=== PATIENT | male | born 1945 | race Caucasian/White ===

== ENCOUNTER 2021-12-14 14:47 | Observation (INO) ==
[2021-12-14] MEDS ORDERED: Naloxone 0.4 MG/ML INJ IVP PRN (20:12)
[2021-12-14] MEDS ORDERED: Ondansetron 4 MG/2 ML VIAL IVP PRN (20:12)
[2021-12-14] MEDS ORDERED: 0.9 % Sodium Chloride 1,000 ML IVC SCH ×2 (20:15→22:54)
[2021-12-15 01:12] LABS: Hematocrit 41.6 % (37.5-50.1); Hemoglobin 13.4 g/dL (12.9-16.9); Mean Corpuscular HGB Conc 32.2 g/dL (31.6-35.5); Mean Corpuscular Hemoglobin 28.9 pg (28.0-33.3); Mean Corpuscular Volume 89.8 fL (83.0-100.0); Mean Platelet Volume 10.2 fL (9.4-12.4); Platelet Count 274 K/mcL (140-400); Red Blood Count 4.63 M/mcL (4.19-5.50); Red Cell Distribution Width 14.2 % (11.5-14.5)
[2021-12-15 01:20] LABS: INR 1.1; Prothrombin Time 11.8 Seconds (9.4-12.1)
[2021-12-15 01:23] LABS: BUN/Creatinine Ratio 18 (6-26); Blood Urea Nitrogen 22 mg/dL (8-23); Calcium 9.3 mg/dL (8.6-10.3); Carbon Dioxide 27 mEq/L (23-29); Chloride 105 mEq/L (98-107); Glucose 119 mg/dL (70-105); Osmolality,Calculated 294 (280-300); Potassium 3.7 mEq/L (3.5-5.1); Sodium 140 mEq/L (136-145); eGFR For African Americans > 60 (> 60); eGFR For Non-African Americans 57 (> 60)
[2021-12-15] MEDS ORDERED: Clindamycin 900 MG/50 ML 900 MG/50 ML IV.SOLN IVPB ONE ×2 (07:44→08:10)
[2021-12-15] MEDS ORDERED: Ondansetron 4 MG/2 ML VIAL ONE (07:55)
[2021-12-15] MEDS ORDERED: *HR* FentaNYL (PF) 100 MCG/2 ML VIAL ONE (07:55)
[2021-12-15] MEDS ORDERED: Ketorolac 30 MG/ML VIAL ONE ×2 (07:55→08:50)
[2021-12-15] MEDS ORDERED: *HR* Propofol 200 MG/20 ML VIAL IVP ONE (07:55)
[2021-12-15] MEDS ORDERED: Lidocaine -MPF 2% 2 ML VIAL ONE (07:55)
[2021-12-15] MEDS ORDERED: Ondansetron 4 MG/2 ML VIAL IVP PRN (08:10)
[2021-12-15] MEDS ORDERED: Isovue-300 50ML VIAL ONE (08:10)
[2021-12-15] MEDS ORDERED: *HR* FentaNYL (PF) 100 MCG/2 ML VIAL IVP PRN (08:10)
[2021-12-15] MEDS ORDERED: *HR* HYDROmorphone PF 0.5 MG/0.5 ML SYRINGE IVP PRN (08:10)
[2021-12-15 10:37] VITALS: O2SAT 95
[2021-12-15 11:36] VITALS: BP 137/80; PULSE 78; TEMP 97.2
[2021-12-21 01:28] LABS: Calculi Mass 26 mg
== END 2021-12-15 13:23 | disposition home or self-care (01) ==
LOC: 3ANU
PROVIDERS: ADMIT Internal Medicine; ATTEND Internal Medicine

== ENCOUNTER 2021-12-19 12:54 | Observation (INO) ==
[2021-12-19] MEDS ORDERED: *HR* HYDROmorphone (PF) 1 MG/ML SYRINGE IVP ONE ×2 (13:13→14:08)
[2021-12-19] MEDS ORDERED: Ondansetron 4 MG/2 ML VIAL IVP ONE (13:13)
[2021-12-19] MEDS: 0.9 % Sodium Chloride 1,000 ML IVC ONE (13:27)
[2021-12-19 13:51] LABS: Basophils % 0.4 %; Eosinophils # 0.1 K/mcL (0.0-0.6); Eosinophils % 0.8 %; Hematocrit 43.7 % (37.5-50.1); Hemoglobin 14.2 g/dL (12.9-16.9); Immature Granulocytes % 0.7 % (0-4); Lymphocytes # 1.7 K/mcL (0.6-4.6); Lymphocytes % 18.9 %; Mean Corpuscular HGB Conc 32.5 g/dL (31.6-35.5); Mean Corpuscular Hemoglobin 28.7 pg (28.0-33.3); Mean Corpuscular Volume 88.5 fL (83.0-100.0); Mean Platelet Volume 10.1 fL (9.4-12.4); Monocytes # 0.7 K/mcL (0.0-1.3); Monocytes % 7.7 %; Neutrophils # 6.5 K/mcL (1.6-8.9); Platelet Count 309 K/mcL (140-400); Red Blood Count 4.94 M/mcL (4.19-5.50); Red Cell Distribution Width 14.1 % (11.5-14.5); Segmented Neutrophils % 71.5 %; White Blood Count 9.1 K/mcL (4.3-11.1)
[2021-12-19 14:02] LABS: Bacteria,Urine Few per hpf (None-Few); Bilirubin,Urine Negative (Negative); Blood,Urine Large (Negative); Clarity,Urine Turbid (Clear); Color,Urine Yellow (Yellow); Glucose,Urine (UA) Normal (Normal); Ketones,Urine 10 mg/dL (Negative); Leukocyte Esterase,Urine Negative (Negative); Mucus,Urine Few per lpf (None-Few); Nitrite,Urine Negative (Negative); PH,Urine 6.5 pH Units (5.0-8.0); Protein,Urine >=300 mg/dL (Neg-Trace); RBC,Urine TNTC per hpf (0-3); Specific Gravity,Urine 1.028 (1.010-1.025); Sperm,Urine Present per hpf (None Seen); Squamous Epithelial Cell,Urine Few per hpf (None-Few); Urobilinogen,Urine Normal (Normal); WBC,Urine 15-30 per hpf (0-3)
[2021-12-19 14:05] LABS: Alanine Aminotransferase 19 Units/L (7-52); Albumin 4.4 g/dL (3.5-5.7); Albumin/Globulin Ratio 1.7 (1.1-2.2); Alkaline Phosphatase 59 Units/L (34-104); Aspartate Amino Transferase 18 Units/L (13-39); BUN/Creatinine Ratio 15 (6-26); Bilirubin,Direct 0.2 mg/dL (0.0-0.2); Bilirubin,Indirect 0.6 mg/dL (0.0-1.0); Bilirubin,Total 0.8 mg/dL (0.3-1.0); Blood Urea Nitrogen 25 mg/dL (8-23); Carbon Dioxide 25 mEq/L (23-29); Chloride 106 mEq/L (98-107); Globulin 2.6 g/dL (2.4-3.5); Glucose 91 mg/dL (70-105); Lipase 16 Units/L (11-82); Osmolality,Calculated 296 (280-300); Potassium 3.8 mEq/L (3.5-5.1); Sodium 141 mEq/L (136-145); Troponin I < 0.03 ng/mL (< 0.04); eGFR For African Americans 50 (> 60); eGFR For Non-African Americans 41 (> 60)
[2021-12-19] MEDS ORDERED: MOM Conc 10 ML UD.LIQ PO PRN (15:44)
[2021-12-19] MEDS ORDERED: Melatonin 3 MG TABLET PO PRN (15:44)
[2021-12-19] MEDS ORDERED: Ondansetron ODT 4 MG TAB.RAPDIS SL PRN (15:44)
[2021-12-19] MEDS ORDERED: Naloxone 0.4 MG/ML INJ IVP PRN (15:44)
[2021-12-19] MEDS ORDERED: Mag Hydrox/Al Hydrox/Simeth 30 ML UDC PO PRN (15:44)
[2021-12-19] MEDS: cefTRIAXone 1,000 MG in 0.9 % Sodium Chloride 10 ML IVPB SCH (16:32)
[2021-12-19] MEDS: 0.9 % Sodium Chloride 1,000 ML IVC SCH (16:32)
[2021-12-19] MEDS: Azithromycin 500 MG in 0.9 % Sodium Chloride 250 ML IVPB SCH (16:32)
[2021-12-19] MEDS: *HR* OxyCODONE Immed Rel 5 MG TABLET PO PRN ×2 (16:35→20:27)
[2021-12-19] MEDS: *HR* HYDROmorphone (PF) 1 MG/ML SYRINGE IVP PRN ×2 (18:12→22:43)
[2021-12-19] MEDS: Gabapentin 400 MG CAPSULE PO SCH (20:27)
[2021-12-20 03:21] LABS: BUN/Creatinine Ratio 17 (6-26); Blood Urea Nitrogen 19 mg/dL (8-23); Calcium 8.7 mg/dL (8.6-10.3); Carbon Dioxide 24 mEq/L (23-29); Chloride 108 mEq/L (98-107); Glucose 90 mg/dL (70-105); Osmolality,Calculated 290 (280-300); Potassium 3.8 mEq/L (3.5-5.1); Sodium 139 mEq/L (136-145); eGFR For African Americans > 60 (> 60); eGFR For Non-African Americans > 60 (> 60)
[2021-12-20] MEDS: *HR* OxyCODONE Immed Rel 5 MG TABLET PO PRN ×3 (03:31→19:57)
[2021-12-20] MEDS: *HR* HYDROmorphone (PF) 1 MG/ML SYRINGE IVP PRN ×5 (05:31→23:14)
[2021-12-20] MEDS: 0.9 % Sodium Chloride 1,000 ML IVC SCH (05:32)
[2021-12-20] MEDS: *HR* Enoxaparin 40 MG/0.4 ML SYRINGE SQ SCH (05:33)
[2021-12-20] MEDS: Aspirin Enteric Coated 81 MG Tablet PO SCH (08:22)
[2021-12-20] MEDS: cefTRIAXone 1,000 MG in 0.9 % Sodium Chloride 10 ML IVPB SCH (08:22)
[2021-12-20] MEDS: amLODIPine 5 MG TABLET PO SCH (08:22)
[2021-12-20] MEDS ORDERED: Hyoscyamine SL 0.125 MG TAB.SUBL SL PRN (09:13)
[2021-12-20] MEDS: Hydrocortisone Acetate 25 MG RECTAL SUPPOSITORY RC PRN (14:18)
[2021-12-20] MEDS: Simethicone 80 MG TAB.CHEW PO PRN (14:22)
[2021-12-20] MEDS: Azithromycin 500 MG in 0.9 % Sodium Chloride 250 ML IVPB SCH (15:35)
[2021-12-20] MEDS: Hyoscyamine SL 0.125 MG TAB.SUBL SL SCH ×2 (17:33→23:14)
[2021-12-20] MEDS: Gabapentin 400 MG CAPSULE PO SCH (19:57)
[2021-12-21] MEDS: *HR* HYDROmorphone (PF) 1 MG/ML SYRINGE IVP PRN ×4 (03:24→16:33)
[2021-12-21] MEDS: Hydrocortisone Acetate 25 MG RECTAL SUPPOSITORY RC PRN ×2 (04:19→18:05)
[2021-12-21] MEDS: Hyoscyamine SL 0.125 MG TAB.SUBL SL SCH ×3 (05:48→18:05)
[2021-12-21] MEDS: *HR* OxyCODONE Immed Rel 5 MG TABLET PO PRN ×4 (05:48→21:55)
[2021-12-21] MEDS: *HR* Enoxaparin 40 MG/0.4 ML SYRINGE SQ SCH (05:49)
[2021-12-21] MEDS: Simethicone 80 MG TAB.CHEW PO PRN (07:35)
[2021-12-21] MEDS: Aspirin Enteric Coated 81 MG Tablet PO SCH (07:35)
[2021-12-21] MEDS: cefTRIAXone 1,000 MG in 0.9 % Sodium Chloride 10 ML IVPB SCH (07:36)
[2021-12-21] MEDS: amLODIPine 5 MG TABLET PO SCH (07:36)
[2021-12-21 08:10] LABS: Basophils # 0.1 K/mcL (0.0-0.2); Basophils % 0.7 %; Eosinophils # 0.1 K/mcL (0.0-0.6); Eosinophils % 1.4 %; Hematocrit 43.7 % (37.5-50.1); Hemoglobin 14.3 g/dL (12.9-16.9); Immature Granulocytes % 0.4 % (0-4); Lymphocytes # 1.7 K/mcL (0.6-4.6); Lymphocytes % 16.3 %; Mean Corpuscular HGB Conc 32.7 g/dL (31.6-35.5); Mean Corpuscular Hemoglobin 28.7 pg (28.0-33.3); Mean Corpuscular Volume 87.6 fL (83.0-100.0); Monocytes # 1.1 K/mcL (0.0-1.3); Monocytes % 10.5 %; Neutrophils # 7.2 K/mcL (1.6-8.9); Platelet Count 288 K/mcL (140-400); Red Blood Count 4.99 M/mcL (4.19-5.50); Red Cell Distribution Width 13.8 % (11.5-14.5); Segmented Neutrophils % 70.7 %; White Blood Count 10.2 K/mcL (4.3-11.1)
[2021-12-21 08:34] LABS: Calcium 9.5 mg/dL (8.6-10.3); Potassium 3.4 mEq/L (3.5-5.1)
[2021-12-21] MEDS: polyethylene glycoL 3350 17 GM POWD.PACK PO SCH (11:27)
[2021-12-21] MEDS: Trolamine Salicylate/Aloe Vera 85 APPL/85 GM TUBE TP PRN ×2 (14:10→17:41)
[2021-12-21] MEDS: Azithromycin 500 MG in 0.9 % Sodium Chloride 250 ML IVPB SCH (16:32)
[2021-12-21] MEDS: Gabapentin 400 MG CAPSULE PO SCH (21:56)
[2021-12-21] MEDS ORDERED: 0.9 % Sodium Chloride 1,000 ML ONE (22:59)
[2021-12-21] MEDS ORDERED: 0.9 % Sodium Chloride 1,000 ML IVC ONE (23:01)
[2021-12-21] MEDS: 0.9 % Sodium Chloride 1,000 ML IVC ONE (23:09)
[2021-12-21 23:33] LABS: Albumin 3.8 g/dL (3.5-5.7); Albumin/Globulin Ratio 1.4 (1.1-2.2); Bilirubin,Total 0.4 mg/dL (0.3-1.0); Calcium 9.5 mg/dL (8.6-10.3); Globulin 2.8 g/dL (2.4-3.5); Potassium 3.5 mEq/L (3.5-5.1); Total Protein 6.6 g/dL (6.4-8.9)
[2021-12-21 23:51] LABS: Prolactin 19.76 ng/mL (3.00-14.70)
[2021-12-22] MEDS: Hyoscyamine SL 0.125 MG TAB.SUBL SL SCH ×4 (00:32→16:34)
[2021-12-22] MEDS: *HR* Enoxaparin 40 MG/0.4 ML SYRINGE SQ SCH (06:06)
[2021-12-22 07:28] LABS: BUN/Creatinine Ratio 13 (6-26); Blood Urea Nitrogen 17 mg/dL (8-23); Carbon Dioxide 26 mEq/L (23-29); Chloride 104 mEq/L (98-107); Glucose 122 mg/dL (70-105); Osmolality,Calculated 287 (280-300); Potassium 3.4 mEq/L (3.5-5.1); Sodium 137 mEq/L (136-145); eGFR For African Americans > 60 (> 60); eGFR For Non-African Americans 53 (> 60)
[2021-12-22] MEDS: cefTRIAXone 1,000 MG in 0.9 % Sodium Chloride 10 ML IVPB SCH (09:18)
[2021-12-22] MEDS: amLODIPine 5 MG TABLET PO SCH (09:19)
[2021-12-22] MEDS: Aspirin Enteric Coated 81 MG Tablet PO SCH (09:19)
[2021-12-22] MEDS: polyethylene glycoL 3350 17 GM POWD.PACK PO SCH (09:20)
[2021-12-22] MEDS: Trolamine Salicylate/Aloe Vera 85 APPL/85 GM TUBE TP PRN (11:29)
[2021-12-22] MEDS: *HR* OxyCODONE Immed Rel 5 MG TABLET PO PRN ×2 (11:33→16:34)
[2021-12-22 15:13] VITALS: BP 144/76; PULSE 78; TEMP 98; O2SAT 92
[2021-12-22] MEDS: Azithromycin 500 MG in 0.9 % Sodium Chloride 250 ML IVPB SCH (16:34)
== END 2021-12-22 18:08 | disposition home or self-care (01) ==
LOC: 3BNU 12:54 → EMEROOARM 12:54 → SUATTDRO 15:12 → 3BNU 15:51
PROVIDERS: ADMIT Internal Medicine; ATTEND Registered Nurse